=== PATIENT | male | born 1980 | race Two or more races ===

== ENCOUNTER 2021-07-31 11:45 | Day surgery (SDC) | payer MEDICAID ==
[2021-07-26 09:37] LABS: Basophils # (auto) 0.1 10 ^3/uL (0-0.2); Basophils % (auto) 1.5 % (0.0-2.0); Eosinophils # (auto) 0.2 10 ^3/uL (0-0.8); Eosinophils % (auto) 4.8 % (0.0-7.0); Hematocrit 48.4 % (41.0-53.0); Hemoglobin 16.1 g/dL (13.5-17.5); Lymphocytes # (auto) 1.7 10 ^3/uL (0.4-5.4); Lymphocytes % (auto) 33.7 % (10.0-50.0); Mean Corpuscular Hemoglobin 30.3 pg (28.0-32.0); Mean Corpuscular Hgb Conc. 33.2 g/dL (32.0-36.0); Mean Corpuscular Volume 91.4 fL (80.0-100.0); Monocytes # (auto) 0.4 10 ^3/uL (0-1.3); Monocytes % (auto) 8.3 % (0.0-12.0); Neutrophils # (auto) 2.5 10 ^3/uL (1.6-8.6); Neutrophils % (auto) 51.7 % (37.0-80.0); Nucleated Red Blood Cells % 0.1 %; Red Cell Distribution Width 14.1 % (11.8-14.3); White Blood Cell 4.9 10^3/uL (4.4-10.8)
[2021-07-26 10:04] LABS: Calcium 8.7 mg/dL (8.5-10.1); Potassium 4.3 mmol/L (3.5-5.1)
[2021-07-26 10:08] LABS: Bilirubin, Total 1.1 mg/dL (0.2-1.0); Total Protein 7.7 g/dL (6.4-8.2)
[~2021-07-31] VITALS: Ht 165.1 cm; Wt 74.8 kg
[~2021-07-31 11:45] MED LIST: OMEP20TA PO; PAR20T PO; TOPI25TA84 PO
[2021-07-31] MEDS ORDERED: MIDAZOLAM HCL 5 MG/ML-1ML VIAL ONE (12:04)
[2021-07-31] MEDS ORDERED: LIDOCAINE VISCOUS 2% 15ML UD ONE (12:04)
[2021-07-31] MEDS ORDERED: SODIUM CHLORIDE LOCK 10 ML ONE (12:04)
[2021-07-31] MEDS ORDERED: diphenhdrAMINE HCL 50 MG/1 ML VL ONE (12:05)
[2021-07-31] MEDS ORDERED: fentaNYL CITRATE 100 MCG/2 ML VL ONE (12:05)
[2021-07-31 13:40] VITALS: BP 115/78
== END 2021-07-31 13:50 | disposition home or self-care (01) ==
LOC: GI 11:45
PROVIDERS: ATTEND Internal Medicine Gastroenterology
DX: R13.10 Dysphagia, unspecified (principal); K21.00 Gastro-esophageal reflux disease with esophagitis, without bleeding; K44.9 Diaphragmatic hernia without obstruction or gangrene; K29.50 Unspecified chronic gastritis without bleeding; Z98.890 Other specified postprocedural states; Z79.899 Other long term (current) drug therapy; Z20.822 Contact with and (suspected) exposure to COVID-19
CPT/HCPCS: 36415; 43239; 43249; 80053; 85025; J1200; J2250; J3010; J7030; U0003; 99152

== ENCOUNTER → 2024-10-18 | Outpatient (CLI) | payer MEDICAID ==
[~2024-10-18] MED LIST changes: +IOHEXOL 350 MG/ML 100ML IJ ONE
[2024-10-18 11:30] VITALS: BP 126/78; PULSE 58; RESP 18; O2SAT 98
[2024-10-18 11:44] VITALS: BP 133/80; PULSE 62; RESP 16; O2SAT 98
--- NOTE | 2024-10-18 12:40 | DVH ---
CTA CHEST INDICATION: R/O PE TECHNIQUE: Multidetector CTA of the chest was performed of the chest with 100 cc of intravenous contr ast. PULMONARY ANGIOGRAPHY PROTOCOL was utilized using a bolus-tracking technique centered on the diaz n pulmonary artery. Axial, coronal and sagittal multiplanar and MIP reformats were performed. Radiation Dose Information: CT Dose: CTDI volume is 8 mGy. Dose-length product is 292 mGy*cm The dose indicators for CT are the volume Computed Tomography (CT) Dose Index (CTDIvol) and the Dose Length Product (DLP), and are measured in units of mGy and mGy-cm, respectively. These indicators are not patient dose, but values generated from the CT scanner acquisition factors. The report includes radiation exposure data for exposures received during this examination. Findings: Pulmonary artery: There is no evidence of a pulmonary arterial filling defect to suggest pulmonary e mbolism. The main pulmonary artery demonstrates normal caliber. Lungs/Pleura: No focal consolidation, pulmonary mass, or suspicious pulmonary nodule. There is no pl eural effusion. Heart/Vascular Structures: Normal heart size. The thoracic aorta demonstrates normal caliber. There is no evidence of pericardial effusion. Lymph Nodes: There is no evidence of mediastinal, hilar or axillary lymphadenopathy. Musculoskeletal: No acute osseous abnormality. Upper abdomen: Limited portions of the upper abdomen are unremarkable. IMPRESSION: 1. There is no evidence of a pulmonary arterial filling defect to suggest pulmonary embolism. 2. There is no acute intrathoracic abnormality. HS:Y
== END | disposition home or self-care (01) ==
LOC: Rad HDHVI 11:21
PROVIDERS: ATTEND Internal Medicine Cardiovascular Disease
DX: R07.9 Chest pain, unspecified (principal)
CPT/HCPCS: 71275; G0463; Q9967

== ENCOUNTER → 2024-10-19 | Outpatient (CLI) | payer MEDICAID ==
[~2024-10-19] MED LIST changes: -IOHEXOL 350 MG/ML 100ML IJ ONE
--- NOTE | 2024-10-24 13:41 | DVHSR ---
APPROVED REPORT EXAM: Two-dimensional and M-mode echocardiogram with Doppler and color Doppler. DIMENSIONS LVDd3.7 (3.8-5.7cm)LA (2D)3.3 (1.9-4.0cm)Aortic Root2.7 (2.0-3.7cm) LVDs2.7 (2.5-4.0cm)LA (MM) (1.9-4.0cm)Aortic Cusp Exc1.7 (1.5-2.0cm) EF (%) 55.0 (55-70%)Rt. Atrium3.5 (1.9-4.0cm)Asc. Aorta cm IVSd1.1 (0.7-1.1cm)RV (D)3.6 (1.8-2.4cm) PWd1.0 (0.7-1.1cm) Mitral Valve MitralMitral Stenosis E wave0.83m/sMV Mean GR.mmHg A wave0.67m/sMV Peak GR.mmHg E/A ratio1.22D MVAcm2 DECEL [id number] 1/2 [place] Aortic Valve Aortic ValveAortic Stenosis V10.97m/Abbi Mean GR.5mmHg V21.57m/Abbi Peak GR.10mmHg LVOT Diameter1.8 (1.8-2.4cm)Doppler AVA1.57cm2 Pulmonic Valve V21.26m/s LEFT VENTRICLE The left ventricle is normal size. The left ventricle is normal in structure and function. The Ejection Fraction is within normal limits. RIGHT VENTRICLE The right ventricle is normal size. ATRIA The left atrial size is normal. The right atrium size is normal. The interatrial septum is intact with no evidence for an atrial septal defect. MITRAL VALVE The mitral valve is normal in structure and function. There is no mitral valve regurgitation noted. PULMONIC VALVE The pulmonic valve is not well visualized. There is trace pulmonic valvular regurgitation. TRICUSPID VALVE The tricuspid valve is grossly normal. There is trace tricuspid regurgitation. AORTIC VALVE The aortic valve opens well. No aortic regurgitation is present. GREAT VESSELS The aortic root is normal size. PERICARDIAL EFFUSION There is no pericardial effusion. Conclusion EF >55%
== END | disposition home or self-care (01) ==
LOC: Rad HDHVI 09:43
PROVIDERS: ATTEND Internal Medicine Cardiovascular Disease
DX: R07.89 Other chest pain (principal)
CPT/HCPCS: 93306

== ENCOUNTER → 2024-10-31 | Outpatient (CLI) | payer MEDICAID ==
[~2024-10-31] VITALS: Ht 165.1 cm; Wt 72.6 kg
== END | disposition home or self-care (01) ==
LOC: Rad HDHVI 08:04
PROVIDERS: ATTEND Internal Medicine Cardiovascular Disease
DX: R06.02 Shortness of breath (principal); R07.89 Other chest pain; E78.00 Pure hypercholesterolemia, unspecified; Z82.49 Family history of ischemic heart disease and other diseases of the circulatory system
CPT/HCPCS: 78452; 93017; 96374; A9500